=== PATIENT | female | born 1950 | race Caucasian/White ===

== ENCOUNTER 2018-04-26 21:37 | Inpatient (IN) ==
[2018-04-26] MEDS ORDERED: SODIUM CHLORIDE 0.9% 1,000 ML IV STA (22:39)
[2018-04-26] MEDS ORDERED: ONDANSETRON 4 MG/2 ML VIAL IV STA (22:39)
[2018-04-26] MEDS ORDERED: ALUM/MAG/SIMETH/LIDO VISC 1:1 30 ML BOTTLE PO STA (22:39)
[2018-04-26] MEDS ORDERED: HYDROmorphone 2 MG/1 ML VIAL IV STA (22:39)
[2018-04-26 23:12] LABS: Eosinophils % 0.5 % (0.00-10.9); Hematocrit 27.5 VOL% (35.7-47.0); Hemoglobin 8.9 GM/DL (12.0-16.0); Immature Granulocytes % 0.5 %; Immature Granulocytes Absolute 0.01 #; Lymphocytes # 0.3 10*3/uL (1.4-4.0); Lymphocytes % 14.7 % (21.3-54.2); Mean Corpuscular HGB Conc 32.4 GM/DL (32-36); Mean Corpuscular Hemoglobin 38 PG (27-34); Mean Corpuscular Volume 116.5 FL (87-102); Monocytes # 0.2 10*3/uL (0.11-0.8); Monocytes % 10.3 % (1.7-12.7); Neutrophils # 1.5 10*3/uL (1.4-7.4); Platelet Count 109 T/CUMM (130-400); Red Blood Count 2.36 MC/CUMM (3.8-5.5); Red Cell Distribution Width 14.7 % (9.3-17.3)
[2018-04-26 23:33] LABS: Albumin 3.7 G/DL (3.4-5.0); Bilirubin,Total 0.4 MG/DL (0.2-1.0); Calcium 10.9 MG/DL (8.5-10.1); Osmolality,Calculated 278.5 MOS/KG (273-304); Potassium 4.2 MMOL/L (3.5-5.1); Total Protein 7.2 G/DL (6.4-8.3)
[2018-04-27] MEDS ORDERED: METOCLOPRAMIDE 10 MG/2 ML VIAL ONE (00:59)
[2018-04-27] MEDS ORDERED: PIPERACILLIN/TAZOBACTAM 3,375 MG in SODIUM CHLORIDE 0.9% 100 ML IV STA (01:14)
[2018-04-27] MEDS ORDERED: ONDANSETRON 4 MG/2 ML VIAL IV PRN (02:03)
[2018-04-27] MEDS ORDERED: HYDROmorphone 2 MG/1 ML VIAL IV PRN (02:11)
[2018-04-27] MEDS: SODIUM CHLORIDE 0.9% 1,000 ML IV SCH ×2 (03:21→23:27)
[2018-04-27 05:58] LABS: INR 1.5; PT Patient Result 16.3 SECS
[2018-04-27 07:52] LABS: Hematocrit 23.4 VOL% (35.7-47.0); Hemoglobin 7.4 GM/DL (12.0-16.0); Immature Granulocytes % 0.5 %; Immature Granulocytes Absolute 0.01 #; Lymphocytes # 0.3 10*3/uL (1.4-4.0); Mean Corpuscular HGB Conc 31.6 GM/DL (32-36); Mean Corpuscular Hemoglobin 37 PG (27-34); Mean Platelet Volume 9.9 FL (9.6-12.0); Monocytes # 0.2 10*3/uL (0.11-0.8); Neutrophils # 1.4 10*3/uL (1.4-7.4); Neutrophils % 73.5 % (38.7-73.9); Red Cell Distribution Width 14.7 % (9.3-17.3); White Blood Count 1.9 T/CUMM (4-12)
[2018-04-27 08:07] LABS: Platelet Count 80 T/CUMM (130-400)
[2018-04-27 08:39] LABS: Albumin 3.1 G/DL (3.4-5.0); Bilirubin,Total 0.4 MG/DL (0.2-1.0); Calcium 9.9 MG/DL (8.5-10.1); Osmolality,Calculated 282.1 MOS/KG (273-304); Potassium 4.6 MMOL/L (3.5-5.1)
[2018-04-27 08:57] LABS: Band Neutrophils 2 % (0-10); Lymphocytes 15 % (20-55); Segmented Neutrophils 79 % (50-85); Total Cells Counted 100
[2018-04-27 08:58] LABS: Ovalocytes Few; Platelet Estimate Decreased; Polychromasia Slight; Tear Drop Cells Slight
[2018-04-27] MEDS: PIPERACILLIN/TAZOBACTAM 3,375 MG in SODIUM CHLORIDE 0.9% 100 ML IV SCH ×2 (09:10→18:44)
[2018-04-27 11:14] LABS: Apearance,Urine CLOUDY (Clear); Bilirubin,Urine Negative (Negative); Blood, Urine Negative (Negative); Glucose,Urine (UA) Negative (Negative); Hyaline Casts,Urine 3 /LPF (0-3); Ketones,Urine 5 mg/dL (Negative); Mucus,Urine Occasional /LPF (Occasional); Nitrite,Urine Negative (Negative); Protein,Urine Negative; RBC,Urine 1 /HPF (0-4); Squamous Epithelial Cell,Urine Occasional /HPF (0-10); Urine Color Yellow (Yellow); Urine Specific Gravity 1.021 (1.001-1.035); Urine Urobilinogen < 2.0 EU/DL (0.2-1.0); WBC,Urine 7 /HPF (0-6)
[2018-04-28] MEDS: PIPERACILLIN/TAZOBACTAM 3,375 MG in SODIUM CHLORIDE 0.9% 100 ML IV SCH ×2 (02:19→10:50)
[2018-04-28 05:07] LABS: Eosinophils % 0.5 % (0.00-10.9); Hemoglobin 6.6 GM/DL (12.0-16.0); Immature Granulocytes % 0.5 %; Immature Granulocytes Absolute 0.01 #; Lymphocytes # 0.5 10*3/uL (1.4-4.0); Lymphocytes % 27.1 % (21.3-54.2); Mean Corpuscular HGB Conc 31.4 GM/DL (32-36); Mean Corpuscular Hemoglobin 37 PG (27-34); Mean Corpuscular Volume 117.3 FL (87-102); Mean Platelet Volume 10.8 FL (9.6-12.0); Monocytes # 0.3 10*3/uL (0.11-0.8); Monocytes % 14.1 % (1.7-12.7); Neutrophils # 1.2 10*3/uL (1.4-7.4); Neutrophils % 57.8 % (38.7-73.9); Platelet Count 65 T/CUMM (130-400); Red Blood Count 1.79 MC/CUMM (3.8-5.5)
[2018-04-28 05:34] LABS: Albumin 2.8 G/DL (3.4-5.0); Bilirubin,Total 0.8 MG/DL (0.2-1.0); Calcium 9.4 MG/DL (8.5-10.1); Osmolality,Calculated 283.8 MOS/KG (273-304); Potassium 3.8 MMOL/L (3.5-5.1); Total Protein 5.6 G/DL (6.4-8.3)
[2018-04-28] MEDS ORDERED: SODIUM CHLORIDE 0.9% 1,000 ML IV PRN ×2 (05:42→05:47)
[2018-04-28 06:20] LABS: Band Neutrophils 6 % (0-10); Lymphocytes 26 % (20-55); Segmented Neutrophils 59 % (50-85); Total Cells Counted 100
[2018-04-28 06:21] LABS: Anisocytosis 1+; Platelet Estimate Decreased
[2018-04-28] MEDS ORDERED: SCOPOLAMINE 1.5 MG PATCH TRANSDERM ONE (09:28)
[2018-04-28 10:41] LABS: Eosinophils % 0.7 % (0.00-10.9); Hematocrit 18.3 VOL% (35.7-47.0); Immature Granulocytes % 0.7 %; Immature Granulocytes Absolute 0.01 #; Lymphocytes # 0.3 10*3/uL (1.4-4.0); Lymphocytes % 21.5 % (21.3-54.2); Mean Corpuscular HGB Conc 31.7 GM/DL (32-36); Mean Corpuscular Hemoglobin 38 PG (27-34); Mean Corpuscular Volume 118.8 FL (87-102); Mean Platelet Volume 10.7 FL (9.6-12.0); Monocytes # 0.2 10*3/uL (0.11-0.8); Monocytes % 12.1 % (1.7-12.7); Platelet Count 58 T/CUMM (130-400); Red Blood Count 1.54 MC/CUMM (3.8-5.5); Red Cell Distribution Width 15.1 % (9.3-17.3); White Blood Count 1.5 T/CUMM (4-12)
[2018-04-28 10:44] LABS: Hemoglobin 5.8 GM/DL (12.0-16.0)
[2018-04-28] MEDS: fentaNYL 25 MCG/HR PATCH TRANSDERM SCH (10:48)
[2018-04-28] MEDS: BISACODYL 10 MG SUPP RECTAL PRN (10:50)
[2018-04-28] MEDS: FILGRASTIM-SNDZ 300 MCG/0.5 ML SYRINGE SUBCUT SCH (10:58)
[2018-04-28 11:06] LABS: Folate 16.1 NG/ML (5.4-24.0); Vitamin B12 > 2000 PG/ML (211-911)
[2018-04-28 13:32] LABS: Anisocytosis Slight; Band Neutrophils 3 % (0-10); Eosinophils 1 % (0-10); Lymphocytes 17 % (20-55); Segmented Neutrophils 68 % (50-85); Total Cells Counted 100
[2018-04-28 13:33] LABS: Macrocytosis Slight
[2018-04-28] MEDS: SODIUM CHLORIDE 0.9% 1,000 ML IV SCH (16:17)
[2018-04-28] MEDS: LACTATED RINGERS 1,000 ML IV SCH (19:48)
[2018-04-28] MEDS: MEROPENEM 1,000 MG in SODIUM CHLORIDE 0.9% 100 ML IV SCH (19:51)
[2018-04-29] MEDS: MEROPENEM 1,000 MG in SODIUM CHLORIDE 0.9% 100 ML IV SCH ×3 (04:23→20:33)
[2018-04-29 05:46] LABS: Basophils % 0.3 % (0.0-0.8); Eosinophils % 0.6 % (0.00-10.9); Hemoglobin 7.3 GM/DL (12.0-16.0); Immature Granulocytes % 0.6 %; Immature Granulocytes Absolute 0.02 #; Lymphocytes # 0.5 10*3/uL (1.4-4.0); Lymphocytes % 14.8 % (21.3-54.2); Mean Corpuscular HGB Conc 31.7 GM/DL (32-36); Mean Corpuscular Hemoglobin 35 PG (27-34); Mean Corpuscular Volume 109.5 FL (87-102); Mean Platelet Volume 10.5 FL (9.6-12.0); Monocytes # 0.4 10*3/uL (0.11-0.8); Monocytes % 10.8 % (1.7-12.7); NRBC # 0.04 10*3/uL; Neutrophils # 2.4 10*3/uL (1.4-7.4); Neutrophils % 72.9 % (38.7-73.9); Red Cell Distribution Width 20.2 % (9.3-17.3); White Blood Count 3.3 T/CUMM (4-12)
[2018-04-29 05:53] LABS: Platelet Count 53 T/CUMM (130-400)
[2018-04-29 06:03] LABS: Albumin 2.1 G/DL (3.4-5.0); Bilirubin,Total 0.7 MG/DL (0.2-1.0); Calcium 7.9 MG/DL (8.5-10.1); Total Protein 4.3 G/DL (6.4-8.3)
[2018-04-29 07:04] LABS: Band Neutrophils 28 % (0-10); Lymphocytes 17 % (20-55); Nucleated Red Blood Cells 2 (0-5); Segmented Neutrophils 53 % (50-85); Total Cells Counted 100
[2018-04-29 07:05] LABS: Anisocytosis 2+; Giant Platelets Few; Platelet Estimate Decreased; Polychromasia Slight; Smudge Cells 1+
[2018-04-29] MEDS ORDERED: POTASSIUM CHLORIDE RIDER 10 MEQ in PREMIX 1 EACH IV PRN (07:12)
[2018-04-29] MEDS: LACTATED RINGERS 1,000 ML IV SCH (09:08)
[2018-04-29] MEDS: FILGRASTIM-SNDZ 300 MCG/0.5 ML SYRINGE SUBCUT SCH (10:08)
[2018-04-29] MEDS: DEXT 5% NACL 0.45% KCL 20 MEQ 20 MEQ/1,000 ML BAG IV SCH (10:08)
[2018-04-29] MEDS: POTASSIUM CHLORIDE 20 MEQ TABLET PO PRN ×2 (20:33→22:24)
[2018-04-30] MEDS: POTASSIUM CHLORIDE 20 MEQ TABLET PO PRN ×2 (00:10→02:13)
[2018-04-30] MEDS: DEXT 5% NACL 0.45% KCL 20 MEQ 20 MEQ/1,000 ML BAG IV SCH ×3 (01:35→22:21)
[2018-04-30] MEDS: MEROPENEM 1,000 MG in SODIUM CHLORIDE 0.9% 100 ML IV SCH ×3 (04:51→20:29)
[2018-04-30 04:52] LABS: Basophils % 0.5 % (0.0-0.8); Eosinophils % 0.5 % (0.00-10.9); Hematocrit 27.6 VOL% (35.7-47.0); Hemoglobin 8.6 GM/DL (12.0-16.0); Immature Granulocytes % 9.8 %; Immature Granulocytes Absolute 0.43 #; Lymphocytes # 0.6 10*3/uL (1.4-4.0); Lymphocytes % 14.3 % (21.3-54.2); Mean Corpuscular HGB Conc 31.2 GM/DL (32-36); Mean Corpuscular Hemoglobin 34 PG (27-34); Mean Platelet Volume 11.7 FL (9.6-12.0); Monocytes # 0.4 10*3/uL (0.11-0.8); Monocytes % 9.5 % (1.7-12.7); NRBC # 0.09 10*3/uL; Neutrophils # 2.9 10*3/uL (1.4-7.4); Neutrophils % 65.4 % (38.7-73.9); Platelet Count 42 T/CUMM (130-400); Red Blood Count 2.51 MC/CUMM (3.8-5.5); Red Cell Distribution Width 20.7 % (9.3-17.3); White Blood Count 4.4 T/CUMM (4-12)
[2018-04-30 06:31] LABS: Band Neutrophils 16 % (0-10); Eosinophils 2 % (0-10); Lymphocytes 7 % (20-55); Nucleated Red Blood Cells 1 (0-5); Segmented Neutrophils 63 % (50-85); Total Cells Counted 100
[2018-04-30 06:32] LABS: Acanthocytes Few; Anisocytosis 1+; Hypochromasia 1+; Ovalocytes 1+
[2018-04-30 06:32] LABS: Albumin 2.3 G/DL (3.4-5.0); Bilirubin,Total 0.8 MG/DL (0.2-1.0); Calcium 8.1 MG/DL (8.5-10.1); Osmolality,Calculated 298.7 MOS/KG (273-304); Total Protein 4.5 G/DL (6.4-8.3)
[2018-04-30 06:33] LABS: Platelet Estimate Decreased
[2018-04-30 06:39] LABS: Potassium 7.8 MMOL/L (3.5-5.1)
[2018-04-30] MEDS ORDERED: TISSUE ADHESIVE 1 EACH APPLICATOR TOP ONE (07:40)
[2018-04-30] MEDS ORDERED: LIDOCAINE 1%/EPI INJ 20 ML VIAL ONE (07:41)
[2018-04-30 09:28] LABS: Calcium 10.4 MG/DL (8.5-10.1); Osmolality,Calculated 275.5 MOS/KG (273-304); Potassium 4.6 MMOL/L (3.5-5.1)
[2018-04-30] MEDS: FILGRASTIM-SNDZ 300 MCG/0.5 ML SYRINGE SUBCUT SCH (09:58)
[2018-04-30] MEDS: BISACODYL 10 MG SUPP RECTAL PRN (18:18)
[2018-05-01] MEDS: MEROPENEM 1,000 MG in SODIUM CHLORIDE 0.9% 100 ML IV SCH ×3 (04:00→20:17)
[2018-05-01 06:17] LABS: Basophils # 0.1 10*3/uL (0.0-0.2); Eosinophils # 0.1 10*3/uL (0.0-0.87); Eosinophils % 0.6 % (0.00-10.9); Hematocrit 32.4 VOL% (35.7-47.0); Immature Granulocytes % 7.2 %; Lymphocytes # 0.8 10*3/uL (1.4-4.0); Lymphocytes % 9.9 % (21.3-54.2); Mean Corpuscular HGB Conc 32.1 GM/DL (32-36); Mean Corpuscular Hemoglobin 34 PG (27-34); Mean Corpuscular Volume 105.9 FL (87-102); Mean Platelet Volume 11.2 FL (9.6-12.0); Monocytes % 11.4 % (1.7-12.7); NRBC # 0.12 10*3/uL; Neutrophils # 5.8 10*3/uL (1.4-7.4); Neutrophils % 69.9 % (38.7-73.9); Red Cell Distribution Width 20.3 % (9.3-17.3)
[2018-05-01 06:18] LABS: Red Blood Count 3.06 MC/CUMM (3.8-5.5); White Blood Count 8.3 T/CUMM (4-12)
[2018-05-01 06:19] LABS: Hemoglobin 10.4 GM/DL (12.0-16.0); Platelet Count 45 T/CUMM (130-400)
[2018-05-01 06:37] LABS: Calcium 11.1 MG/DL (8.5-10.1); Osmolality,Calculated 275.7 MOS/KG (273-304); Potassium 4.6 MMOL/L (3.5-5.1)
[2018-05-01 06:42] LABS: Eosinophils 1 % (0-10); Lymphocytes 5 % (20-55); Myelocytes 1 %; Platelet Estimate Decreased; Segmented Neutrophils 88 % (50-85); Total Cells Counted 100
[2018-05-01 06:43] LABS: Polychromasia Few
[2018-05-01] MEDS: FILGRASTIM-SNDZ 300 MCG/0.5 ML SYRINGE SUBCUT SCH (09:44)
[2018-05-01] MEDS: fentaNYL 25 MCG/HR PATCH TRANSDERM SCH (09:45)
[2018-05-01] MEDS: ALBUTEROL/IPRATROPIUM 3 ML NEB RESP TX SCH ×2 (13:10→20:10)
[2018-05-01] MEDS: DEXT 5% NACL 0.45% KCL 20 MEQ 20 MEQ/1,000 ML BAG IV SCH (20:17)
[2018-05-02] MEDS: ALBUTEROL/IPRATROPIUM 3 ML NEB RESP TX SCH ×3 (00:56→13:00)
[2018-05-02] MEDS: MEROPENEM 1,000 MG in SODIUM CHLORIDE 0.9% 100 ML IV SCH ×2 (04:05→13:31)
[2018-05-02 08:06] LABS: Basophils % 0.2 % (0.0-0.8); Eosinophils # 0.1 10*3/uL (0.0-0.87); Eosinophils % 0.4 % (0.00-10.9); Hematocrit 33.1 VOL% (35.7-47.0); Hemoglobin 10.4 GM/DL (12.0-16.0); Immature Granulocytes % 10.1 %; Immature Granulocytes Absolute 1.27 #; Lymphocytes # 1.3 10*3/uL (1.4-4.0); Lymphocytes % 10.3 % (21.3-54.2); Mean Corpuscular HGB Conc 31.4 GM/DL (32-36); Mean Corpuscular Hemoglobin 34 PG (27-34); Mean Corpuscular Volume 107.8 FL (87-102); Mean Platelet Volume 11.4 FL (9.6-12.0); Monocytes # 1.3 10*3/uL (0.11-0.8); Monocytes % 10.5 % (1.7-12.7); NRBC # 0.16 10*3/uL; Neutrophils # 8.6 10*3/uL (1.4-7.4); Neutrophils % 68.5 % (38.7-73.9); Platelet Count 47 T/CUMM (130-400); Red Blood Count 3.07 MC/CUMM (3.8-5.5); White Blood Count 12.6 T/CUMM (4-12)
[2018-05-02 08:26] LABS: Albumin 2.8 G/DL (3.4-5.0); Bilirubin,Direct 0.54 MG/DL (0.0-0.20); Bilirubin,Indirect 0.5 MG/DL (0.0-1.0); Total Protein 5.5 G/DL (6.4-8.3)
[2018-05-02 08:42] LABS: Calcium 11.1 MG/DL (8.5-10.1); Osmolality,Calculated 276.7 MOS/KG (273-304); Potassium 4.8 MMOL/L (3.5-5.1)
[2018-05-02 10:20] LABS: Band Neutrophils 11 % (0-10); Eosinophils 1 % (0-10); Hypochromasia 1+; Lymphocytes 8 % (20-55); Metamyelocytes 1 %; Nucleated Red Blood Cells 1 (0-5); Segmented Neutrophils 70 % (50-85); Total Cells Counted 100
[2018-05-02 10:21] LABS: Anisocytosis 1+; Microcytosis 1+; Ovalocytes Few; Polychromasia Slight
[2018-05-02 10:22] LABS: Platelet Estimate Decreased
[2018-05-02] MEDS: DEXT 5% NACL 0.45% KCL 20 MEQ 20 MEQ/1,000 ML BAG IV SCH (13:32)
[2018-05-02] MEDS ORDERED: FAT EMULSION 20% 250 ML IV SCH (14:00)
[2018-05-02 16:26] VITALS: BP 118/58
[2018-05-02] MEDS ORDERED: DEXTROSE 10% 1,000 ML IV PRN (17:00)
[2018-05-02] MEDS ORDERED: TRACE ELEMENTS (5) 1 ML, MULTIVITAMIN INJ 10 ML in AMINO ACIDS/DEXT/LYTES 4.25-5% 2,000 ML IV SCH (17:00)
== END 2018-05-02 18:29 | disposition hospice, home (50) | DRG 435 ==
LOC: N.ED 21:37 → SUATTDRO 04-27 02:01 → N.EDINP 04-27 02:01 → N.5E 04-27 02:31 → N.4E 04-27 02:38
PROVIDERS: ADMIT Internal Medicine; ATTEND Internal Medicine